=== PATIENT | male | born 1990 | race Caucasian/White ===

== ENCOUNTER 2016-06-15 11:33 | Emergency (ER) | payer OTHER ==
[~2016-06-15] VITALS: Ht 180.3 cm; Wt 72.6 kg
[~2016-06-15 11:33] MED LIST: BACTRIM DS 8001 TAB PO; FLEXERIL10 MG PO; IBU800 MG PO; KEFLEX500 MG PO; MOTRIN800 MG PO; NAPROSYN 500 M500 MG PO
--- NOTE | 2016-06-15 13:59 | ED GENERAL ADULT ---
History of Present Illness General Chief Complaint: General Adult Stated Complaint: LUMP?? Source: patient, old records Exam Limitations: no limitations Vital Signs & Intake/Output Vital Signs & Intake/Output Vital Signs Date Time Temp Pulse Resp B/P Pulse O2 O2 Flow FiO2 Ox Delivery Rate 06/15 1401 65 18 115/54 98 Room Air 06/15 1345 Room Air 06/15 1149 98.6 92 20 128/78 99 Room Air Allergies Coded Allergies: NO KNOWN ALLERGIES (08/29/13) Reconcile Medications Naproxen (Naprosyn) 500 MG TABLET 1 TAB PO BID PRN pain/inflammation Triage Note: PT TO ED C/O "LUMP" TO LEFT BREAST X 2 WEEKS. ALSO C/O CHEST PAIN. "I'M ONLY 26, I NEED TO GET CHECKED OUT". PT TAKEN TO EKG [facility]. Triage Nurses Notes Reviewed? yes Onset: Gradual Duration: worse persistent since (2 WEEKS) Timing: recent history Injury Environment: home Severity: moderate Severity Numbers: 5 No Modifying Factors: none HPI: Patient is a 26-year-old daily smoker presenting to the emergency department with chief complaint of chest pains. He reports that he is been experiencing on and off chest pains for about a year or 2. More consistent over the past 2 weeks. Chest pains are located over the left breast area and radiate across. Denies any associated shortness of breath. No arm pain or jaw pain. No numbness or tingling. Denies any nausea or vomiting. Denies taking anything to help with pain. Patient reports that the pain is brief and then goes away. 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 Denies any specific injury. He also noticed some swelling in the left breast area. Mildly tender to palpation of those area. No discharge. Denies any family history of breast cancer. Patient denies any weight changes. No night sweats. No recent congestion or cough. (MCKENNA SAMUEL) Past History Travel History Traveled to [place] past 21 day No Medical History Any Pertinent Medical History? 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 No (MCKENNA SAMUEL) Review of Systems Review of Systems Constitutional: Reports: no symptoms. Comments Review of systems: See HPI, All other systems negative. Constitutional, no chills fever or weight loss HEENT: No visual changes no sore throat no congestion Cardiovascular: No palpitation , orthopnea or ankle swelling Skin, no jaundice no rashes Respiratory: No dyspnea cough sputum or hemoptysis GI: No nausea no vomiting : No dysuria No hematuria Muscle skeletal: no back pain, no neck pain, Neurologic: No numbness no confusion Psych: No stress anxiety or depression,. Heme/endocrine: No bruising no bleeding no polyuria or polydipsia Immunology: No splenectomy or history of AIDS (MCKENNA SAMUEL) Physical Exam Physical Exam General Appearance: well developed/nourished, no apparent distress, alert, awake , comfortable Comments: Well-developed well-nourished person in no acute distress HEENT: Normal EENT exam, extraocular motion intact, no nystagmus. Pupils equally round and reactive to light and accommodation. Nose is atraumatic. Neck: Supple, no lymphadenopathy, normal range of motion without pain or tenderness Back: Nontender, no CVA tenderness. Full range of motion Cardiovascular: Regular rate and rhythms no murmurs rubs or gallops, normal JVP Respiratory: Chest is mildly tender to palpation over the left side. No respiratory distress.breath sounds clear to auscultation bilaterally. There appears to be a small area of tissue accumulation over the left nipple, no obvious gynecomastia with visualization. Abdomen: Soft, nontender nondistended, no appreciable organomegaly. Normal bowel sounds. No ascites Extremity: No edema, no calf tenderness to palpation, normal and equal pulses. Neuro: Alert oriented x3 Skin: No appreciable rash on exposed skin, skin is warm and dry. Psych: Mood and affect is normal, memory and judgment is normal. Core Measures ACS in differential dx? Yes CVA/TIA Diagnosis: No Severe Sepsis Present: No Septic Shock Present: No (MCKENNA SAMUEL) Progress Differential Diagnoses I considered the following diagnoses in my evaluation of the patient: Endocrine disorder, ACS, pulmonary embolus, muscle strain, contusion Plan of Care: Orders Procedure Date/time Status Add-on Test (ER Only) 06/15 1445 Active PARATHYROID HORMONE 06/15 1350 Complete TROPONIN LEVEL 06/15 1342 Complete COMPREHENSIVE METABOLIC PANEL 06/15 1342 Complete CBC WITHOUT DIFFERENTIAL 06/15 134 Complete EKG 06/15 1153 Active Laboratory Tests 06/15/16 1350: Anion Gap 9, Estimated GFR > 60, BUN/Creatinine Ratio 10.0, Glucose 86, Calcium 10.9 H, Total Bilirubin 0.8, AST 27, ALT 44, Alkaline Phosphatase 57, Troponin I < 0.01, Total Protein 7.0, Albumin 4.3, Globulin 2.7, Albumin/Globulin Ratio 1.6, PTH Intact 53.5, CBC w Diff NO MAN DIFF REQ, RBC 5.90, MCV 89.6, MCH 29.9, RDW 14.2, MPV 8.0, Gran % 72.5, Lymphocytes % 15.4 L, Monocytes % 6.9, Eosinophils % 4.7, Basophils % 0.5, Absolute Granulocytes 7.4 H, Absolute Lymphocytes 1.6, Absolute Monocytes 0.7 H, Absolute Eosinophils 0.5, Absolute Basophils 0, PUBS MCHC 33.4 Diagnostic Imaging: Viewed by Me: Radiology Read. Discussed w/RAD: Radiology Read. CXR Impression: PATIENT: OSBALDO HASSAN PRESENT AGE: 26 PATIENT ACCOUNT NO: [id number] : 90 LOCATION: [facility] ORDERING PHYSICIAN: MCKENNA MORSE SERVICE DATE: 06/15/16 EXAM TYPE: RAD - XRY-CHEST XRAY, PA AND LATERAL EXAMINATION: XR CHEST CLINICAL INFORMATION: Chest pain COMPARISON: 03/31/2015, report only TECHNIQUE: 2 views of the chest were obtained. FINDINGS: No significant abnormality is noted involving the heart, lungs, mediastinum, bony thorax or soft tissues. IMPRESSION: Unremarkable examination. DICTATED BY: LINDA BETTS MD DATE/TIME DICTATED:06/15/161435 PLATFORM OPERATIONS DIRECTOR:GERMAN DATE/TIME TRANSCRIBED:06/15/161435 CONFIDENTIAL, DO NOT COPY WITHOUT APPROPRIATE AUTHORIZATION. Initial ED EKG: NSR (78 BPM) Prior EKG: unchanged Comments: 06/15/2016 2:50:42 PM patient not having any pain at time of arrival in the emergency department. He has been pain-free throughout her entire visit. Negative troponin. EKG is sinus rhythm and unchanged. He is PERC negative. Calcium is slightly elevated. Parathyroid hormone added on. Patient will be tried she had with NSAIDs. Advised to follow-up with a primary care physician. Patient nontoxic. (MCKENNA SAMUEL) Departure Departure Time of Disposition: 1450 Disposition: HOME OR SELF CARE Condition: Stable Clinical Impression Primary Impression: Chest pain Qualifiers: Chest pain type: unspecified Qualified Code: R07.9 - Chest pain, unspecified Referrals: PENDING SALE TO [facility] PATIENT HAS NO PRIMARY CARE DR (PCP/Family) Additional Instructions: Follow up with [facility] to make an appointment. it is important a follow-up with a primary care physician for further evaluation if symptoms persist. Your also given a payment specialist that he can follow-up with. Take anti- inflammatories as prescribed. Departure Forms: Customer Survey General Discharge Information Prescriptions: Current Visit Scripts Naproxen (Naprosyn) 1 TAB PO BID PRN pain/inflammation #20 TAB (MCKENNA SAMUEL) PA/CARBONIZER Co-Sign Statement Statement: ED Attending supervision documentation- [] I saw and evaluated the patient. I have also reviewed all the pertinent lab results and diagnostic results. I agree with the findings and the plan of care as documented in the PA's/CARBONIZER's documentation. [x] I have reviewed the ED Record and agree with the PA's/CARBONIZER's documentation. [] Additions or exceptions (if any) to the PAs/CARBONIZER's note and plan are summarized below: [] (RJ REDD DO) Critical Care Note Critical Care Note Critical Care Time: non-applicable (MCKENNA SAMUEL)
[2016-06-15 14:01] VITALS: BP 115/54
[2016-06-15 14:01] LABS: ABSOLUTE BASOPHIL COUNT 0 /CUMM (0.0-0.2); ABSOLUTE EOSINOPHIL COUNT 0.5 /CUMM (0.0-0.7); ABSOLUTE GRANULOCYTE CT 7.4 /CUMM (1.4-6.5); ABSOLUTE LYMPH COUNT 1.6 /CUMM (1.2-3.4); ABSOLUTE MONOCYTE COUNT 0.7 /CUMM (0.10-0.60); BASOPHIL % 0.5 % (0.0-2.0); EOSINOPHIL % 4.7 % (0-5); GRANULOCYTE % 72.5 % (42.2-75.2); HEMATOCRIT 52.8 % (42-52); MEAN CORPUSCULAR HGB 29.9 PG (27.0-31.0); MEAN CORPUSCULAR HGB CONC 33.4 G/DL (33.0-37.0); MEAN CORPUSCULAR VOLUME 89.6 FL (80.0-94.0); PLATELET COUNT 235 /CUMM (130-400); RBC DISTRIBUTION WIDTH 14.2 % (11.5-14.5); WHITE BLOOD CELL COUNT 10.2 /CUMM (4.8-10.8)
--- NOTE | 2016-06-15 14:40 | RADIOLOGY REPORT ---
EXAMINATION: XR CHEST CLINICAL INFORMATION: Chest pain COMPARISON: 03/31/2015, report only TECHNIQUE: 2 views of the chest were obtained. FINDINGS: No significant abnormality is noted involving the heart, lungs, mediastinum, bony thorax or soft tissues. IMPRESSION: Unremarkable examination.
[2016-06-15] MEDS ORDERED: NAPROSYN500 M1 PO (15:14)
== END 2016-06-15 15:29 ==
LOC: ERH 11:33
PROVIDERS: Physician Assistant
DX: R07.9 Chest pain, unspecified (principal)
CPT/HCPCS: 93005; 93010

== ENCOUNTER 2017-04-23 10:22 | Emergency (ER) | payer SELFPAY ==
[~2017-04-23] VITALS: Ht 172.7 cm; Wt 70.3 kg
[~2017-04-23 10:22] MED LIST changes: +AMOXICILLIN875 M1 PO; +CIPRO500 M1 PO; +NAPROSYN500 M1 PO; +PERCOCET 5-3251 EACH PO
--- NOTE | 2017-04-23 11:04 | ED CARDIAC/CP/PALPITATIONS ---
History of Present Illness General Chief Complaint: Chest Pain Stated Complaint: LUMP ON L SIDE OF CHEST, CP Source: patient, old records Exam Limitations: no limitations Vital Signs & Intake/Output Vital Signs & Intake/Output Vital Signs Date Time Temp Pulse Resp B/P B/P Pulse O2 O2 Flow FiO2 Mean Ox Delivery Rate 04/23 1032 96.0 93 20 134/71 98 Room Air Allergies Coded Allergies: No Known Allergies (02/23/17) Reconcile Medications Ciprofloxacin HCl (Cipro) 500 MG TABLET 1 TAB PO BID uti Triage Note: PT TO ED C/O LEFT SIDED CHEST PAIN WITH "A LUMP" X 1 YEAR. STATES HE WAS SEEN FOR SAME IN MAY 2016. FEELS THE "LUMP" IS GETTING BIGGER. ALSO C/O INTERMITTENT CHEST PAIN X 1 YEAR. Triage Nurses Notes Reviewed? yes HPI: 26M no PMH with a painful lump above his left nipple, was painful about a year ago, pain resolved but lump didnt, now painful the last few days. No fever, chills, n/v, substernal chest pain, or SOB. No other symptoms. No family history of breast or ovarian cancer. Past History Travel History Traveled to [place] past 21 day No Medical History Any Pertinent Medical History? 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 No Review of Systems Review of Systems Constitutional: Reports: no symptoms. EENTM: Reports: no symptoms. Respiratory: Reports: no symptoms. Cardiovascular: Reports: no symptoms. GI: Reports: no symptoms. Genitourinary: Reports: no symptoms. Musculoskeletal: Reports: no symptoms. Skin: Reports: no symptoms. Neurological/Psychological: Reports: no symptoms. Hematologic/Endocrine: Reports: no symptoms. Immunologic/Allergic: Reports: no symptoms. All Other Systems: Reviewed and Negative Physical Exam Physical Exam General Appearance: well developed/nourished, no apparent distress (`) Head: atraumatic, normal appearance Eyes: Bilateral: normal appearance. Ears, Nose, Throat: hearing grossly normal Neck: normal inspection, supple Respiratory: normal breath sounds, no respiratory distress, 2cm left breast mass , irregular, 11 o'clock position, mildly tender, no nipple discharge Cardiovascular: regular rate/rhythm Gastrointestinal: soft, non-tender Back: normal inspection Extremities: normal inspection, normal range of motion Neurologic/Psych: awake, alert, oriented x 3, normal mood/affect Skin: intact, normal color Core Measures ACS in differential dx? No CVA/TIA Diagnosis No Sepsis Present: No Sepsis Focused Exam Completed? No Progress Differential Diagnosis: AMI, aortic dissection, atrial fibrillation, cholecystitis, CHF/pulm edema, costochondritis, hyperkalemia, hypovolemia, hyperthyroid, hyperventilation, intracranial hemorrhage, musculoskeletal pain, myocarditis, pancreatitis, pericarditis, pneumonia, pneumothorax, PSVT, pulmonary embolism, PUD/GERD, PVCs/PACs, respiratory failure, rib fracture, sepsis, unstable angina, V-fib/V-Tach, WPW syndrome Plan of Care: Orders Procedure Date/time Status EKG 04/23 1023 Active No acute issues at this time, unlikely to be abscess. Will refer to surgery for follow up. Initial ED EKG: normal sinus rhythm, no ST T wave changes Departure Departure Disposition: HOME OR SELF CARE Condition: Stable Clinical Impression Primary Impression: Breast mass in male Referrals: Patient Has No Primary Care Dr (PCP/Family) Trell JUAREZ,Delfino Cristobal Additional Instructions: Follow up with surgery for evaluation. If you notice redness, warmth, fever, chills, or deep chest pain with exertion, or shortness of breath, or any other new or worsening symptoms, return to emergency department. Departure Forms: Customer Survey General Discharge Information Critical Care Note Critical Care Note Critical Care Time: non-applicable
[2017-04-23 11:38] VITALS: BP 136/66
== END 2017-04-23 12:05 ==
LOC: ERH 10:22
DX: N63.20 Unspecified lump in the left breast, unspecified quadrant (principal); R07.9 Chest pain, unspecified
CPT/HCPCS: 93005; 93010